=== PATIENT | female | born 1945 | race Caucasian/White ===

== ENCOUNTER 2016-06-01 16:42 | Emergency (ER) | payer OTHER ==
[~2016-06-01] VITALS: Ht 162.6 cm; Wt 48.2 kg
[~2016-06-01 16:42] MED LIST: ADULT LOW DOSE81 M1 PO; ADVAIR; ADVAIR 250/501 DISK IH; ADVAIR HFA120 INHALA IH; ALBUTEROL SULF8.5 GM IH; ALBUTEROL2.5 MG/3 M IH; ASPIRIN81 M2 PO; ATIVAN0.5 MG PO; Advair HFA 115/21 IH; BACID1 CAP PO; BACTRIM,SEPT1 TABLET PO; BENICAR HCT 201 EACH PO; BENICAR40 MG PO; Benicar HCT 20/12.5 PO; CEFTIN500 MG PO; CELEXA20 MG PO; CELEXA40 MG PO; CENTRUM COMPLE1 EACH PO; CENTRUM SILVER1 EAC3 PO; CIPRO750 MG PO; CITALOPRAM HBR20 M1 PO; CITALOPRAM HBR20 MG PO; CLEOCIN150 MG PO; CLONAZEPAM0.5 MG PO; COLACE100 MG PO; COMBIVENT INH14.7 GM IH; CYCLOBENZAPRINE5 MG PO; Ceftin PO; Colace PO; DICLOFENAC SODI75 MG PO; DOCUSATE SODIU100 MG PO; DULCOLAX10 MG PR; DUONEB 2.5-0.5 M3 ML IH; ENDOCET 5-3251 EACH PO; ERGOCALCIF50000 UNIT PO; FLAGYL500 MG PO; FLEXERIL5 MG PO; FLOVENT 11120 INHALA IH; FOLIC ACID1 MG PO; Habitrol,Nicoderm CQ TD; IRON325 M1 PO; IRON325 MG PO; LAXATIVE SUPPOS10 MG PR; LEVAQUIN500 MG PO; LIDOCAINE700 MG TD; LIDODERM 5% P1 PATCH TD; LIPITOR40 MG PO; LOSARTAN POTASS25 MG PO; LYRICA50 MG PO; Lipitor PO; MEDROL DOSEPAK4 MG PO; METHYLPREDNISOLO4 M1 PO; MILK OF MAGN PO; MILK OF MAGNESIA PO; MIRALAX17 GM PO; MONTELUKAST SOD10 MG PO; OXYCODONE HCL5 MG PO; PANTOPRAZOLE SO20 MG PO; PERCOCET 5-3251 EACH PO; PERCOCET 5/31 TABLET PO; PERCOCET 7.51 TABLET PO; PLAVIX75 MG PO; POLYETHYLENE GL17 GM PO; PRAVASTATIN SOD40 MG PO; PREDNISONE10 M1 PO; PREDNISONE5 MG PO; PROAIR HFA8.5 GM IH; PROTONIX20 MG PO; PROVENTIL17 GM IH; Percocet 5/325,Endoc PO; Plavix PO; RANITIDINE HCL150 MG PO; ROXICODONE5 MG PO; SENNA LAX8.6 MG PO; SIMVASTATIN10 MG PO; SINGULAIR10 MG PO; SPIRIVA RESPIMAT4 GM IH; SPIRIVA1 INHALATI IH; Singulair PO; TRAMADOL HCL50 MG PO; TYLENOL EXTRA500 MG PO; TYLENOL REGULA325 MG PO; Theragran-M,Centrum, PO; VITAMIN D-32000 UNI2 PO; VOLTAREN75 MG PO; Voltaren XR PO; WELLBUTRIN SR150 MG PO; WELLBUTRIN XL150 MG PO; Wellbutrin SR PO; ZANTAC150 MG PO; ZANTAC75 MG PO; ZOCOR10 MG PO; celeXA PO; predniSONE PO
[2016-06-01 17:17] LABS: BASOPHIL COUNT 0.1 K/uL (0-0.1); EOSINOPHIL COUNT 0.1 K/uL (0-0.3); HEMATOCRIT 33.9 % (36.0-46.0); IMMATURE GRANULOCYTE (%) 0.6 % (0.0-0.7); IMMATURE GRANULOCYTE COUNT 0.1 K/uL; INSTRUMENT ABS NEUTROPHIL CT 10.2 K/uL; LYMPHOCYTE COUNT 1.7 K/uL (1.0-2.8); MCH 25.6 PG (29.0-34.0); MCHC 29.8 G/DL (30.0-36.0); MCV 85.8 FL (83-99); MEAN PLAT.VOLUME 9.7 uM^3 (9.5-12.4); MONOCYTE COUNT 1.1 K/uL (0-0.8); NEUTROPHIL (%) 77.3 % (45-76); NEUTROPHIL COUNT 10.2 K/uL (1.8-6.4); PLATELET COUNT 488 K/uL (156-360); RBC DIS.WIDTH-CV 14.2 % (11.8-14.6); RBC DIS.WIDTH-SD 44.7 % (39-53); RED BLOOD COUNT 3.95 M/uL (3.80-5.20); WHITE BLOOD COUNT 13.2 K/uL (4.1-10.2)
[2016-06-01 17:30] LABS: CHLORIDE 102 mEq/L (99-109); POTASSIUM 4.9 mEq/L (3.7-5.4); SODIUM 133 mEq/L (136-147)
[2016-06-01 17:32] LABS: GLUCOSE 100 mg/dL (70-99)
[2016-06-01 17:33] LABS: ANION GAP 15 MEQ/L (2-14)
[2016-06-01 17:35] LABS: GFR ESTIMATE (CALCULATED) 25 mL/min/
[2016-06-01 17:36] LABS: UREA NITROGEN (BUN) 20 mg/dL (9-23)
[2016-06-01 17:44] LABS: ADD MIUA? YES; BILIRUBIN NEGATIVE; BLOOD SMALL; COLOR YELLOW ((YELLOW)); GLUCOSE (STRIP) NEGATIVE; KETONES NEGATIVE; LEUKOCYTES NEGATIVE; NITRITE NEGATIVE; PROTEIN (STRIP) 30; SPECIFIC GRAVITY 1.019 (1.000-1.030); UROBILINOGEN 0.2 MG/DL (0.2-1.0)
[2016-06-01 18:06] LABS: BACTERIA RARE /HPF; EPITHELIAL CELLS RARE /HPF; MUCUS TRACE /LPF; RED BLOOD CELLS NONE SEEN /HPF (0-5); WHITE BLOOD CELLS 0-5 /HPF (0-5)
[2016-06-01] MEDS ORDERED: KEFLEX500 MG PO (18:56)
[2016-06-01 20:08] VITALS: BP 118/82
== END 2016-06-01 20:30 | disposition home or self-care (01) ==
LOC: EME 16:42 → EXP 16:42
PROVIDERS: Physician Assistant
DX: N39.0 Urinary tract infection, site not specified (principal); S89.91XA Unspecified injury of right lower leg, initial encounter; S89.92XA Unspecified injury of left lower leg, initial encounter; S49.91XA Unspecified injury of right shoulder and upper arm, initial encounter; S49.92XA Unspecified injury of left shoulder and upper arm, initial encounter; W18.30XA Fall on same level, unspecified, initial encounter; R05 Cough; E11.9 Type 2 diabetes mellitus without complications; J44.9 Chronic obstructive pulmonary disease, unspecified; I10 Essential (primary) hypertension; I25.2 Old myocardial infarction; K21.9 Gastro-esophageal reflux disease without esophagitis; Z87.891 Personal history of nicotine dependence; Z86.73 Personal history of transient ischemic attack (TIA), and cerebral infarction without residual deficits
CPT/HCPCS: 71010; 73030; 73564; 80048; 81003; 85025; 87077; 87086; 87186; 99281; 99284; J0696; J7030; J7050

== ENCOUNTER 2016-06-04 09:55 | Inpatient (IN) | payer OTHER ==
[~2016-06-04] VITALS: Ht 162.6 cm; Wt 53.5 kg
[~2016-06-04 09:55] MED LIST changes: +KEFLEX500 MG PO
[2016-06-04 11:26] LABS: BASOPHIL COUNT 0.1 K/uL (0-0.1); EOSINOPHIL (%) 2.2 % (0-5); EOSINOPHIL COUNT 0.2 K/uL (0-0.3); HEMATOCRIT 31.7 % (36.0-46.0); IMMATURE GRANULOCYTE COUNT 0.1 K/uL; INSTRUMENT ABS NEUTROPHIL CT 6.3 K/uL; LYMPHOCYTE COUNT 1.2 K/uL (1.0-2.8); MCH 25.5 PG (29.0-34.0); MCHC 29.3 G/DL (30.0-36.0); MCV 87.1 FL (83-99); MEAN PLAT.VOLUME 9.1 uM^3 (9.5-12.4); MONOCYTE (%) 6.3 % (3-12); MONOCYTE COUNT 0.5 K/uL (0-0.8); NEUTROPHIL (%) 75.2 % (45-76); NEUTROPHIL COUNT 6.3 K/uL (1.8-6.4); PLATELET COUNT 414 K/uL (156-360); RBC DIS.WIDTH-CV 14.1 % (11.8-14.6); RBC DIS.WIDTH-SD 45.5 % (39-53); RED BLOOD COUNT 3.64 M/uL (3.80-5.20); WHITE BLOOD COUNT 8.3 K/uL (4.1-10.2)
[2016-06-04 11:35] LABS: CHLORIDE 106 mEq/L (99-109); SODIUM 138 mEq/L (136-147)
[2016-06-04 11:37] LABS: GLUCOSE 78 mg/dL (70-99)
[2016-06-04 11:38] LABS: ANION GAP 14 MEQ/L (2-14)
[2016-06-04 11:39] LABS: TOTAL BILIRUBIN 0.3 mg/dL (0.0-1.0)
[2016-06-04 11:41] LABS: ALKALINE PHOSPHATASE 127 IU/L (3-129); GFR ESTIMATE (CALCULATED) 31 mL/min/
[2016-06-04 11:42] LABS: UREA NITROGEN (BUN) 16 mg/dL (9-23)
[2016-06-04 11:58] LABS: ADD MIUA? NO; BILIRUBIN NEGATIVE; BLOOD NEGATIVE; COLOR YELLOW ((YELLOW)); GLUCOSE (STRIP) NEGATIVE; KETONES 5; LEUKOCYTES NEGATIVE; NITRITE NEGATIVE; PROTEIN (STRIP) 30; SPECIFIC GRAVITY 1.014 (1.000-1.030); UROBILINOGEN 0.2 MG/DL (0.2-1.0)
[2016-06-04] MEDS ORDERED: SENNA LAX8.6 MG PO (12:16)
[2016-06-04] MEDS ORDERED: VITAMIN D-32000 UNI2 PO (12:17)
[2016-06-04] MEDS ORDERED: PRAVACHOL40 MG PO (12:18)
[2016-06-04 16:15] VITALS: BP 132/61
[2016-06-04 20:34] VITALS: BP 142/68
[2016-06-04 23:40] VITALS: BP 139/60
[2016-06-05 04:43] VITALS: BP 133/64
[2016-06-05 06:24] LABS: BASOPHIL COUNT 0.1 K/uL (0-0.1); EOSINOPHIL (%) 1.6 % (0-5); EOSINOPHIL COUNT 0.2 K/uL (0-0.3); HEMATOCRIT 30.6 % (36.0-46.0); IMMATURE GRANULOCYTE (%) 0.9 % (0.0-0.7); IMMATURE GRANULOCYTE COUNT 0.1 K/uL; LYMPHOCYTE COUNT 1.6 K/uL (1.0-2.8); MCH 25.4 PG (29.0-34.0); MCHC 28.8 G/DL (30.0-36.0); MCV 88.2 FL (83-99); MEAN PLAT.VOLUME 9.8 uM^3 (9.5-12.4); MONOCYTE (%) 6.9 % (3-12); MONOCYTE COUNT 0.7 K/uL (0-0.8); NEUTROPHIL (%) 73.3 % (45-76); PLATELET COUNT 421 K/uL (156-360); RBC DIS.WIDTH-CV 14.4 % (11.8-14.6); RED BLOOD COUNT 3.47 M/uL (3.80-5.20); WHITE BLOOD COUNT 9.6 K/uL (4.1-10.2)
[2016-06-05 06:50] LABS: ANION GAP 12 MEQ/L (2-14); CHLORIDE 104 MEQ/L (99-109); GFR ESTIMATE (CALCULATED) 39 mL/min/; POTASSIUM 4.1 MEQ/L (3.7-5.4); SAMPLE HEMOLYSIS CHECK 0; SAMPLE ICTERIC CHECK 0; SAMPLE LIPEMIA CHECK 0; SODIUM 136 MEQ/L (136-147); UREA NITROGEN (BUN) 13 mg/dL (9-23)
[2016-06-05 06:52] LABS: GLUCOSE 46 mg/dL (70-99)
[2016-06-05 07:35] VITALS: BP 142/80
[2016-06-05 11:41] VITALS: BP 132/78
[2016-06-05 14:06] LABS: C DIFF TOXIN POSITIVE (NEGATIVE); PROBE CHECK PASS
[2016-06-05 15:45] VITALS: BP 140/65
[2016-06-05 20:36] VITALS: BP 179/70
[2016-06-06] VITALS (7 sets, daily range): BP systolic 134–148; BP diastolic 60–91
[2016-06-06 05:32] LABS: HEMATOCRIT 30.4 % (36.0-46.0); MCH 24.9 PG (29.0-34.0); MCHC 28.9 G/DL (30.0-36.0); MCV 85.9 FL (83-99); MEAN PLAT.VOLUME 9.7 uM^3 (9.5-12.4); PLATELET COUNT 456 K/uL (156-360); RBC DIS.WIDTH-CV 14.2 % (11.8-14.6); RBC DIS.WIDTH-SD 44.5 % (39-53); RED BLOOD COUNT 3.54 M/uL (3.80-5.20); WHITE BLOOD COUNT 12.3 K/uL (4.1-10.2)
[2016-06-06 05:55] LABS: ANION GAP 14 MEQ/L (2-14); CHLORIDE 102 MEQ/L (99-109); GFR ESTIMATE (CALCULATED) 43 mL/min/; GLUCOSE 72 mg/dL (70-99); POTASSIUM 3.4 MEQ/L (3.7-5.4); SAMPLE HEMOLYSIS CHECK 0; SAMPLE ICTERIC CHECK 0; SAMPLE LIPEMIA CHECK 0; SODIUM 133 MEQ/L (136-147); UREA NITROGEN (BUN) 11 mg/dL (9-23)
[2016-06-07 04:49] VITALS: BP 151/69
[2016-06-07 07:46] LABS: BASOPHIL COUNT 0.1 K/uL (0-0.1); EOSINOPHIL (%) 1.1 % (0-5); EOSINOPHIL COUNT 0.1 K/uL (0-0.3); HEMATOCRIT 29.2 % (36.0-46.0); IMMATURE GRANULOCYTE (%) 0.8 % (0.0-0.7); IMMATURE GRANULOCYTE COUNT 0.1 K/uL; INSTRUMENT ABS NEUTROPHIL CT 6.1 K/uL; LYMPHOCYTE COUNT 1.6 K/uL (1.0-2.8); MCH 25.6 PG (29.0-34.0); MCHC 29.8 G/DL (30.0-36.0); MCV 85.9 FL (83-99); MEAN PLAT.VOLUME 9.8 uM^3 (9.5-12.4); MONOCYTE (%) 6.7 % (3-12); MONOCYTE COUNT 0.6 K/uL (0-0.8); NEUTROPHIL (%) 72.3 % (45-76); NEUTROPHIL COUNT 6.1 K/uL (1.8-6.4); PLATELET COUNT 461 K/uL (156-360); RBC DIS.WIDTH-CV 14.6 % (11.8-14.6); RBC DIS.WIDTH-SD 45.9 % (39-53)
[2016-06-07 07:51] LABS: ANION GAP 11 MEQ/L (2-14); CHLORIDE 106 MEQ/L (99-109); GFR ESTIMATE (CALCULATED) 47 mL/min/; GLUCOSE 73 mg/dL (70-99); SAMPLE HEMOLYSIS CHECK 0; SAMPLE ICTERIC CHECK 0; SAMPLE LIPEMIA CHECK 0; SODIUM 137 MEQ/L (136-147); UREA NITROGEN (BUN) 8 mg/dL (9-23)
[2016-06-07 07:59] LABS: WHITE BLOOD COUNT 8.5 K/uL (4.1-10.2)
[2016-06-07 08:30] VITALS: BP 120/60
[2016-06-07 16:36] VITALS: BP 140/60
[2016-06-07 19:23] VITALS: BP 126/57; BP 126/66
[2016-06-07 23:11] VITALS: BP 122/58
[2016-06-08 06:01] VITALS: BP 130/68
[2016-06-08 08:34] VITALS: BP 140/70
[2016-06-08 11:28] VITALS: BP 100/70
[2016-06-08 16:30] VITALS: BP 120/50
[2016-06-08 19:50] VITALS: BP 134/60
[2016-06-08 23:50] VITALS: BP 108/56
[2016-06-09 03:42] VITALS: BP 118/59
[2016-06-09] MEDS ORDERED: LINEZOLID600 MG PO (07:17)
[2016-06-09] MEDS ORDERED: FLORASTOR250 MG PO (07:17)
[2016-06-09] MEDS ORDERED: VANCOCIN 250 M250 MG PO (07:18)
[2016-06-09 08:08] VITALS: BP 110/60
[2016-06-09 12:17] VITALS: BP 126/60
[2016-06-09 15:59] VITALS: BP 98/52
[2016-06-09 19:36] VITALS: BP 120/56
[2016-06-09 23:53] VITALS: BP 116/58
[2016-06-10 03:40] VITALS: BP 112/54
[2016-06-10 08:37] VITALS: BP 160/70
[2016-06-10 11:39] VITALS: BP 158/66
[2016-06-10 16:50] VITALS: BP 150/60
== END 2016-06-10 16:59 | disposition home health service (06) | DRG 689 ==
LOC: EME → EDBD 09:55 → EME 09:55 → EDOF 12:54 → 3EAST 12:54 → EDOF 13:03 → 3EAST 15:35
PROVIDERS: Emergency Medicine; Nurse Practitioner Adult Health; Pediatrics; Physician Assistant Medical
DX: N39.0 Urinary tract infection, site not specified (principal); G93.40 Encephalopathy, unspecified; B95.2 Enterococcus as the cause of diseases classified elsewhere; Z16.21 Resistance to vancomycin; A04.7 Enterocolitis due to Clostridium difficile; J44.0 Chronic obstructive pulmonary disease with (acute) lower respiratory infection; J20.9 Acute bronchitis, unspecified; E87.6 Hypokalemia; F41.9 Anxiety disorder, unspecified; E78.5 Hyperlipidemia, unspecified; I10 Essential (primary) hypertension; F32.9 Major depressive disorder, single episode, unspecified; M06.9 Rheumatoid arthritis, unspecified; Z86.73 Personal history of transient ischemic attack (TIA), and cerebral infarction without residual deficits; Z90.5 Acquired absence of kidney; Z96.642 Presence of left artificial hip joint; Z87.891 Personal history of nicotine dependence; Z79.02 Long term (current) use of antithrombotics/antiplatelets; Z90.49 Acquired absence of other specified parts of digestive tract; Z99.81 Dependence on supplemental oxygen
CPT/HCPCS: 70450; 71010; 71020; 73030; 73564; 74183; 76770; 80048; 80053; 81003; 83605; 85025; 85027; 87040; 87077; 87086; 87186; 87493; 93005; 94640; 94640 76; 94799; 99202; 99281; 99284; 99285; J0696; J1650; J2020; J2060; J3480; J7030; J7050

== ENCOUNTER 2016-07-08 20:41 | Inpatient (IN) | payer OTHER ==
[~2016-07-08] VITALS: Ht 162.6 cm; Wt 54.6 kg
[~2016-07-08 20:41] MED LIST changes: +FLORASTOR250 MG PO; +LINEZOLID600 MG PO; +PRAVACHOL40 MG PO; +VANCOCIN 250 M250 MG PO
[2016-07-08 21:36] LABS: HEMATOCRIT 29.5 % (36.0-46.0); MCH 25.7 PG (29.0-34.0); MCHC 29.2 G/DL (30.0-36.0); MCV 88.1 FL (83-99); MEAN PLAT.VOLUME 9.9 uM^3 (9.5-12.4); PLATELET COUNT 351 K/uL (156-360); RBC DIS.WIDTH-CV 14.5 % (11.8-14.6); RBC DIS.WIDTH-SD 46.5 % (39-53); RED BLOOD COUNT 3.35 M/uL (3.80-5.20); WHITE BLOOD COUNT 8.9 K/uL (4.1-10.2)
[2016-07-08 21:45] LABS: CHLORIDE 106 mEq/L (99-109); POTASSIUM 3.5 mEq/L (3.7-5.4); SODIUM 136 mEq/L (136-147)
[2016-07-08 21:47] LABS: GLUCOSE 123 mg/dL (70-99)
[2016-07-08 21:49] LABS: ANION GAP 9 MEQ/L (2-14); TOTAL BILIRUBIN 0.2 mg/dL (0.0-1.0)
[2016-07-08 21:51] LABS: ALKALINE PHOSPHATASE 93 IU/L (3-129); GFR ESTIMATE (CALCULATED) 28 mL/min/
[2016-07-08 21:52] LABS: UREA NITROGEN (BUN) 19 mg/dL (9-23)
[2016-07-08 21:58] LABS: TROP-I INTERPRETATION NEGATIVE; TROPONIN-I < 0.01 ng/mL (0.0-0.30)
[2016-07-09] VITALS (22 sets, daily range): BP systolic 72–146; BP diastolic 27–66
[2016-07-09 00:07] LABS: ADD MIUA? YES; BILIRUBIN NEGATIVE; BLOOD NEGATIVE; COLOR YELLOW ((YELLOW)); GLUCOSE (STRIP) NEGATIVE; KETONES NEGATIVE; LEUKOCYTES TRACE; NITRITE NEGATIVE; PROTEIN (STRIP) 30; SPECIFIC GRAVITY 1.016 (1.000-1.030); UROBILINOGEN 0.2 MG/DL (0.2-1.0)
[2016-07-09 00:14] LABS: BACTERIA NONE SEEN /HPF; EPITHELIAL CELLS RARE /HPF; HYALINE CASTS 20-30 /LPF; MUCUS 2+ /LPF; RED BLOOD CELLS 0-5 /HPF (0-5)
[2016-07-09 00:27] LABS: INTER. NORMALIZED RATIO 1.1; PROTHROMBIN TIME 11.2 (9.2-11.2); PTT 26.9 (25-32)
[2016-07-09 00:37] LABS: HEMATOCRIT 25.5 % (36.0-46.0); MCH 25.4 PG (29.0-34.0); MCHC 28.2 G/DL (30.0-36.0); MCV 90.1 FL (83-99); PLATELET COUNT 286 K/uL (156-360); RBC DIS.WIDTH-CV 14.6 % (11.8-14.6); RBC DIS.WIDTH-SD 48.2 % (39-53); RED BLOOD COUNT 2.83 M/uL (3.80-5.20)
[2016-07-09 03:30] LABS: METH RESISTANT S AUREUS PCR NEGATIVE (NEGATIVE)
[2016-07-09 03:41] LABS: PROBE CHECK PASS; SPECIMEN PROCESSING CONTROL PASS
[2016-07-09 05:05] LABS: HEMATOCRIT 24.5 % (36.0-46.0); MCH 25.5 PG (29.0-34.0); MCHC 28.6 G/DL (30.0-36.0); MCV 89.1 FL (83-99); MEAN PLAT.VOLUME 10.1 uM^3 (9.5-12.4); PLATELET COUNT 287 K/uL (156-360); RBC DIS.WIDTH-CV 14.8 % (11.8-14.6); RBC DIS.WIDTH-SD 47.7 % (39-53); RED BLOOD COUNT 2.75 M/uL (3.80-5.20); WHITE BLOOD COUNT 6.3 K/uL (4.1-10.2)
[2016-07-09 05:17] LABS: CHLORIDE 111 mEq/L (99-109); SODIUM 136 mEq/L (136-147)
[2016-07-09 05:18] LABS: MAGNESIUM 1.2 mg/dL (1.3-2.7)
[2016-07-09 05:19] LABS: GLUCOSE 111 mg/dL (70-99)
[2016-07-09 05:21] LABS: ANION GAP 8 MEQ/L (2-14)
[2016-07-09 05:23] LABS: GFR ESTIMATE (CALCULATED) 34 mL/min/
[2016-07-09 05:24] LABS: UREA NITROGEN (BUN) 17 mg/dL (9-23)
[2016-07-09 05:28] LABS: TROP-I INTERPRETATION NEGATIVE; TROPONIN-I < 0.01 ng/mL (0.0-0.30)
[2016-07-09 13:03] LABS: TROP-I INTERPRETATION NEGATIVE; TROPONIN-I < 0.01 ng/mL (0.0-0.30)
[2016-07-09 18:38] LABS: TROP-I INTERPRETATION NEGATIVE; TROPONIN-I < 0.01 ng/mL (0.0-0.30)
[2016-07-10] VITALS (17 sets, daily range): BP systolic 118–156; BP diastolic 41–72
[2016-07-10 06:13] LABS: ANION GAP 9 MEQ/L (2-14); CHLORIDE 107 MEQ/L (99-109); GFR ESTIMATE (CALCULATED) 36 mL/min/; GLUCOSE 121 mg/dL (70-99); MAGNESIUM 2.1 mg/dl (1.3-2.7); POTASSIUM 3.8 MEQ/L (3.7-5.4); SAMPLE HEMOLYSIS CHECK 0; SAMPLE ICTERIC CHECK 0; SAMPLE LIPEMIA CHECK 0; SODIUM 137 MEQ/L (136-147); UREA NITROGEN (BUN) 12 mg/dL (9-23)
[2016-07-10 06:18] LABS: HEMATOCRIT 25.7 % (36.0-46.0); MCH 25.8 PG (29.0-34.0); MCHC 29.6 G/DL (30.0-36.0); MCV 87.1 FL (83-99); MEAN PLAT.VOLUME 9.8 uM^3 (9.5-12.4); PLATELET COUNT 311 K/uL (156-360); RBC DIS.WIDTH-CV 14.6 % (11.8-14.6); RBC DIS.WIDTH-SD 46.5 % (39-53); RED BLOOD COUNT 2.95 M/uL (3.80-5.20)
[2016-07-10 06:27] LABS: WHITE BLOOD COUNT 9.6 K/uL (4.1-10.2)
[2016-07-11] VITALS (7 sets, daily range): BP systolic 98–154; BP diastolic 51–91
[2016-07-11 05:43] LABS: EOSINOPHIL (%) 0 % (0-5); HEMATOCRIT 31.2 % (36.0-46.0); IMMATURE GRANULOCYTE (%) 0.9 % (0.0-0.7); IMMATURE GRANULOCYTE COUNT 0.1 K/uL; INSTRUMENT ABS NEUTROPHIL CT 8.8 K/uL; LYMPHOCYTE COUNT 0.8 K/uL (1.0-2.8); MCH 26.7 PG (29.0-34.0); MCHC 30.8 G/DL (30.0-36.0); MCV 86.7 FL (83-99); MEAN PLAT.VOLUME 9.7 uM^3 (9.5-12.4); MONOCYTE (%) 2.6 % (3-12); MONOCYTE COUNT 0.3 K/uL (0-0.8); NEUTROPHIL (%) 88.2 % (45-76); NEUTROPHIL COUNT 8.8 K/uL (1.8-6.4); PLATELET COUNT 364 K/uL (156-360); RBC DIS.WIDTH-CV 14.6 % (11.8-14.6); RBC DIS.WIDTH-SD 46.5 % (39-53); WHITE BLOOD COUNT 9.9 K/uL (4.1-10.2)
[2016-07-11 06:03] LABS: ANION GAP 9 MEQ/L (2-14); CHLORIDE 106 MEQ/L (99-109); GFR ESTIMATE (CALCULATED) 43 mL/min/; GLUCOSE 105 mg/dL (70-99); MAGNESIUM 1.9 mg/dl (1.3-2.7); POTASSIUM 3.8 MEQ/L (3.7-5.4); SAMPLE HEMOLYSIS CHECK 0; SAMPLE ICTERIC CHECK 0; SAMPLE LIPEMIA CHECK 0; SODIUM 138 MEQ/L (136-147); UREA NITROGEN (BUN) 11 mg/dL (9-23)
[2016-07-12 00:35] VITALS: BP 119/77
[2016-07-12 07:09] LABS: HEMATOCRIT 32.1 % (36.0-46.0); MCH 26.2 PG (29.0-34.0); MCHC 30.5 G/DL (30.0-36.0); MCV 85.8 FL (83-99); MEAN PLAT.VOLUME 9.7 uM^3 (9.5-12.4); PLATELET COUNT 379 K/uL (156-360); RBC DIS.WIDTH-CV 14.9 % (11.8-14.6); RED BLOOD COUNT 3.74 M/uL (3.80-5.20)
[2016-07-12 07:10] VITALS: BP 158/72
[2016-07-12 07:10] LABS: WHITE BLOOD COUNT 6.8 K/uL (4.1-10.2)
[2016-07-12 07:25] LABS: ANION GAP 9 MEQ/L (2-14); CHLORIDE 104 MEQ/L (99-109); GFR ESTIMATE (CALCULATED) 47 mL/min/; GLUCOSE 92 mg/dL (70-99); MAGNESIUM 1.8 mg/dl (1.3-2.7); POTASSIUM 3.5 MEQ/L (3.7-5.4); SAMPLE HEMOLYSIS CHECK 0; SAMPLE ICTERIC CHECK 0; SAMPLE LIPEMIA CHECK 0; SODIUM 142 MEQ/L (136-147); UREA NITROGEN (BUN) 11 mg/dL (9-23)
[2016-07-12 08:33] LABS: EOSINOPHIL (%) 0 % (0-5); IMMATURE GRANULOCYTE (%) 1.3 % (0.0-0.7); IMMATURE GRANULOCYTE COUNT 0.1 K/uL; INSTRUMENT ABS NEUTROPHIL CT 5.3 K/uL; MONOCYTE (%) 5.2 % (3-12); MONOCYTE COUNT 0.4 K/uL (0-0.8); NEUTROPHIL (%) 78.4 % (45-76); NEUTROPHIL COUNT 5.3 K/uL (1.8-6.4)
[2016-07-12 15:23] VITALS: BP 135/65
[2016-07-12 23:04] VITALS: BP 159/72
[2016-07-13 07:22] LABS: EOSINOPHIL (%) 0 % (0-5); HEMATOCRIT 35.2 % (36.0-46.0); IMMATURE GRANULOCYTE (%) 1.4 % (0.0-0.7); IMMATURE GRANULOCYTE COUNT 0.1 K/uL; LYMPHOCYTE COUNT 0.8 K/uL (1.0-2.8); MCH 26.6 PG (29.0-34.0); MCHC 30.1 G/DL (30.0-36.0); MCV 88.2 FL (83-99); MEAN PLAT.VOLUME 10.1 uM^3 (9.5-12.4); MONOCYTE (%) 3.4 % (3-12); MONOCYTE COUNT 0.2 K/uL (0-0.8); NEUTROPHIL (%) 83.4 % (45-76); PLATELET COUNT 382 K/uL (156-360); RBC DIS.WIDTH-CV 14.8 % (11.8-14.6); RBC DIS.WIDTH-SD 47.8 % (39-53); RED BLOOD COUNT 3.99 M/uL (3.80-5.20); WHITE BLOOD COUNT 7.2 K/uL (4.1-10.2)
[2016-07-13 07:41] LABS: ALKALINE PHOSPHATASE 68 IU/L (3-129); ANION GAP 6 MEQ/L (2-14); CHLORIDE 98 MEQ/L (99-109); GFR ESTIMATE (CALCULATED) 47 mL/min/; GLUCOSE 106 mg/dL (70-99); MAGNESIUM 1.8 mg/dl (1.3-2.7); POTASSIUM 4.7 MEQ/L (3.7-5.4); SAMPLE HEMOLYSIS CHECK 2; SAMPLE ICTERIC CHECK 0; SAMPLE LIPEMIA CHECK 0; SODIUM 134 MEQ/L (136-147); TOTAL BILIRUBIN 0.4 MG/DL (0.0-1.0); UREA NITROGEN (BUN) 13 mg/dL (9-23)
[2016-07-13 07:55] VITALS: BP 143/63
[2016-07-13] MEDS ORDERED: AMOXICILLIN500 MG PO (14:40)
[2016-07-13] MEDS ORDERED: MEDROL DOSEPAK4 MG PO (14:43)
[2016-07-13 16:30] VITALS: BP 140/58
== END 2016-07-13 19:05 | disposition home health service (06) | DRG 871 ==
LOC: EME → EDBD 20:41 → EME 20:41 → EDOF 23:53 → 4WEST 23:53 → EDOF 07-09 00:31 → 4WEST 07-09 02:13 → 2EASTP 07-11 08:07
PROVIDERS: Emergency Medicine; Nurse Practitioner Adult Health
PROC: 30233N1 Transfusion of Nonautologous Red Blood Cells into Peripheral Vein, Percutaneous Approach (ICD-10-PCS; principal; 2016-07-10)
DX: A41.9 Sepsis, unspecified organism (principal); N39.0 Urinary tract infection, site not specified; Z16.21 Resistance to vancomycin; B95.2 Enterococcus as the cause of diseases classified elsewhere; J44.0 Chronic obstructive pulmonary disease with (acute) lower respiratory infection; J20.9 Acute bronchitis, unspecified; J44.1 Chronic obstructive pulmonary disease with (acute) exacerbation; R57.1 Hypovolemic shock; R65.21 Severe sepsis with septic shock; K92.2 Gastrointestinal hemorrhage, unspecified; N17.9 Acute kidney failure, unspecified; E87.6 Hypokalemia; D64.9 Anemia, unspecified; I10 Essential (primary) hypertension; E78.5 Hyperlipidemia, unspecified; Z96.642 Presence of left artificial hip joint; Z86.73 Personal history of transient ischemic attack (TIA), and cerebral infarction without residual deficits; Z99.81 Dependence on supplemental oxygen; Z79.02 Long term (current) use of antithrombotics/antiplatelets; Z87.891 Personal history of nicotine dependence; Z90.5 Acquired absence of kidney
CPT/HCPCS: 71010; 74000; 80048; 80048 91; 80053; 80069; 81003; 82330; 82533 91; 83605; 83735; 84100; 84443; 84484; 85025; 85027; 85610; 85730; 86900; 86901; 86920; 87040; 87077; 87086; 87186; 87493; 87641; 93005; 94640; 94640 76; 94799; 99202; 99281; 99285; C9113; J0456; J0610; J0692; J2020; J2920; J2930; J3475; J7030; J7050; J7120; P9016; S0028